=== PATIENT | female | born 1950 | race Caucasian/White ===

== ENCOUNTER 2019-07-07 21:19 | Emergency (ER) | payer MEDICARE ==
[~2019-07-07] VITALS: Ht 157.5 cm; Wt 52.6 kg
[2019-07-07 21:20] VITALS: BP 159/71
--- NOTE | 2019-07-07 21:20 | NUR ---
PT [facility] ON [facility], AMBULATED TO BED #07
--- NOTE | 2019-07-07 21:45 | NUR ---
68 Y/O FEMALE BIB AMBULANCE C/O LEFT SHOULDER PAIN 12/03 X 4 DAYS; PT DENIES ANY TRAUMA; PAIN IS NON RADIATING; DENIES N/V/D; SKIN IS PINK/WARM/DRY; AAOX4 WITH EVEN AND STEADY GAIT; HR EVEN AND REGULAR; PT DENIES ANY FEVER, CP, SOB, OR COUGH AT THIS TIME; VSS; PATIENT POSITIONED FOR COMFORT; HOB ELEVATED; BEDRAILS UP X2; BED DOWN AND LOCKED. ER MD MADE AWARE OF PT STATUS. MEDICAL HX: STAGE 4 BREAST CANCER/HTN NKA
--- NOTE | 2019-07-07 21:47 | NUR ---
AT BEDSIDE EXAMINING PT
--- NOTE | 2019-07-07 22:24 | NUR ---
PT RESTING IN BED IN POSITION OF COMFORT, CONNECTED TO BEDSIDE MONITOR. VSS, WILL CONTINUE TO MONITOR. BED LOW AND LOCKED WITH 2 SIDERAILS UP
[2019-07-07 22:40] VITALS: BP 151/79
--- NOTE | 2019-07-07 22:40 | NUR ---
Patient discharged with v/s stable. Written and verbal after care instructions given and explained. Patient verbalized understanding. Ambulatory with steady gait. All questions addressed prior to discharge. Advised to follow up with PMD.
--- NOTE | 2019-07-07 22:41 | NUR ---
PT TOSSED HER DC PAPERWORK ON [employer] DESK , SO PAPERWORK PLACED IN SHRED BIN.
--- NOTE | 2019-07-07 22:49 | NUR ---
TRAFFIC CONTROL TECHNICIAN PAZ SUAREZ ISSUED TAXI VOUCHER FOR PT, THUS PT WAITING IN ER LOBBY FOR TAXI TO ARRIVE
== END 2019-07-07 22:40 | disposition home or self-care (01) ==
LOC: MED 21:19
DX: M25.512 Pain in left shoulder (principal); I10 Essential (primary) hypertension; Z85.3 Personal history of malignant neoplasm of breast
CPT/HCPCS: 73030; 99283